=== PATIENT | male | born 1995 | race Caucasian/White ===

== ENCOUNTER 2019-09-28 16:21 | Emergency (ER) | payer OTHER ==
[~2019-09-28] VITALS: Ht 172.7 cm; Wt 95.2 kg
[~2019-09-28 16:21] MED LIST: Bactrim Ds Tab1 EACH PO; Cleocin HCl150 MG PO; HIBICLENS120 ML EXT
== END 2019-09-28 17:48 | disposition home or self-care (01) ==
LOC: ER 16:21
DX: T23.032A Burn of unspecified degree of multiple left fingers (nail), not including thumb, initial encounter (principal); T31.0 Burns involving less than 10% of body surface; X58.XXXA Exposure to other specified factors, initial encounter
CPT/HCPCS: 73130; 99283-25

== ENCOUNTER 2019-10-04 11:14 | Emergency (ER) | payer OTHER ==
[~2019-10-04] VITALS: Ht 172.7 cm; Wt 95.2 kg
== END 2019-10-04 11:46 | disposition home or self-care (01) ==
LOC: ER 11:14
DX: T23.032 Burn of unspecified degree of multiple left fingers (nail), not including thumb (principal); T31.0 Burns involving less than 10% of body surface; X58.XXXD Exposure to other specified factors, subsequent encounter
CPT/HCPCS: 99282

== ENCOUNTER → 2020-02-10 | Outpatient (CLI) | payer OTHER ==
[2020-02-12 01:09] LABS: HBSAG SCREEN Negative (Negative); HCV ANTIBODY <0.1 (0.0-0.9); HIV SCREEN 4TH GENERATION WRFX Non Reactive (Non Reactive)
== END | disposition home or self-care (01) ==
LOC: LAB SHORT 08:25 → LAB EV 08:25
PROVIDERS: Physician Assistant
DX: Z20.9 Contact with and (suspected) exposure to unspecified communicable disease (principal)
CPT/HCPCS: 84460; 86317; 86803; 87340; 87389